=== PATIENT | male | born 1965 | race Caucasian/White ===

== ENCOUNTER 2018-04-17 12:52 | Emergency (ER) | payer SELFPAY ==
[~2018-04-17] VITALS: Ht 172.7 cm; Wt 88.1 kg
[2018-04-17 13:17] VITALS: BP 144/90
[2018-04-17] MEDS ORDERED: IBUPROFEN 200 MG TABLET ONE (13:26)
[2018-04-17] MEDS ORDERED: IBUPROFEN 200 MG TABLET PO ONE (13:30)
[2018-04-17] MEDS ORDERED: MAALOX/HYOSCYAMINE/LIDOCAINE 45 ML BTL ONE (13:58)
[2018-04-17] MEDS ORDERED: MAALOX/HYOSCYAMINE/LIDOCAINE 45 ML BTL PO ONE (14:00)
== END 2018-04-17 14:17 | disposition home or self-care (01) ==
LOC: ED 14:11
DX: K21.9 Gastro-esophageal reflux disease without esophagitis (principal); J02.9 Acute pharyngitis, unspecified
CPT/HCPCS: 87081; 87880; 99283